=== PATIENT | male | born 1990 | race Caucasian/White ===

== ENCOUNTER 2018-05-22 06:59 | Emergency (ER) | payer SELFPAY ==
[~2018-05-22] VITALS: Ht 170.2 cm; Wt 88.5 kg
[2018-05-22 07:02] VITALS: BP 129/79
--- NOTE | 2018-05-22 07:04 | NUR ---
TO BED # 11 AMBULATORY
--- NOTE | 2018-05-22 07:10 | NUR ---
Dr. Shelton evaluating patient at bedside.
[2018-05-22] MEDS ORDERED: MECLIZINE 25 MG TAB PO ONE (07:15)
--- NOTE | 2018-05-22 07:29 | NUR ---
PT LAYING IN BED WITH EYES CLOSED, EASILY AROUSABLE TO VOICE. AWAKE, ALERT, ORIENTED X3. RESP EVEN AND UNLABORED, DENIES ANY ACUTE PAIN AT THIS TIME. REPORTS SYNCOPAL EPISODES X4 TIMES OVER THE LAST 2 DAYS. DENIES ANY LOSS OF CONSCIOUSNESS. DENIES CHANGES IN VISION, ONLY REPORTS MILD INTERMITTENT HEADACHE. NO OBVIOUS TRAUMA NOTED. SKIN W/D/I. DENIES CP, DENIES DURG OR ETOH ABUSE. PT WITH DISHEVELED APPEARANCE, DENIES BEING HOMELESS, JUST SOFA SURFING. NOTED THAT PT WAS HERE AT [facility] LAST NIGHT, ER MD NOTIFIED.
[2018-05-22 07:31] LABS: EOSINOPHILS # (AUTO) 0.2 K/uL (0-0.4); EOSINOPHILS % (AUTO) 4.1 % (0.0-4.0); HEMATOCRIT 41.8 % (36-52); HEMOGLOBIN 13.8 g/dL (12.0-18.0); LYMPHOCYTES # (AUTO) 1.3 K/uL (2.0-11.5); LYMPHOCYTES % (AUTO) 25.7 % (20.5-51.1); MEAN CORPUSCULAR HEMOGLOBIN 30 pg (27-31); MEAN CORPUSCULAR HGB CONC 33 g/dL (33-37); MEAN CORPUSCULAR VOLUME 90.1 fL (80-94); MONOCYTES # (AUTO) 0.3 K/uL (0.8-1.0); MONOCYTES % (AUTO) 5.9 % (1.7-9.3); NEUTROPHILS # (AUTO) 3.2 K/uL (1.8-7.7); NEUTROPHILS % (AUTO) 63.3 % (42.2-75.2); PLATELET COUNT (AUTO) 173 K/uL (140-450); RED BLOOD CELL COUNT(AUTO) 4.64 MIL/uL (4.20-6.10); RED CELL DISTRIBUTION WIDTH 13.2 % (11.6-13.7)
[2018-05-22 07:54] LABS: ALBUMIN 3.3 g/dL (3.4-5.0); ANION GAP 7.6 (8-16); ASPARTATE AMINOTRANSFERASE 14 U/L (15-37); CARBON DIOXIDE 26.9 mmol/L (21-32); CHLORIDE 106 mmol/L (98-107); GFR ARICAN-AMERICAN 115 mL/min (>90); GLUCOSE 136 mg/dL (74-106); POTASSIUM 3.5 mmol/L (3.5-5.1); SODIUM SERUM 137 mmol/L (136-145); TOTAL BILIRUBIN 0.2 mg/dL (0.0-1.0); UREA NITROGEN, BLOOD 8 mg/dL (7-18)
--- NOTE | 2018-05-22 08:05 | NUR ---
[facility] COLLECTED AND SENT
[2018-05-22 08:36] LABS: APPEARANCE,URINE CLEAR (CLEAR); BILIRUBIN,URINE NEGATIVE (NEGATIVE); BLOOD, URINE NEGATIVE (NEGATIVE); COLOR,URINE YELLOW (YELLOW); LEUKOCYTE ESTERASE ,URINE NEGATIVE (NEGATIVE); NITRITE, URINE NEGATIVE (NEGATIVE); UGLUCOSE NEGATIVE (NEGATIVE)
[2018-05-22 08:45] LABS: BARBITURATE, URINE NEG. ng/ml (NEG <=200); BENZODIAZEPINE, URINE NEG. ng/mL (NEG <=200); CANNABINOID, URINE POS. ng/mL (NEG <=50); COCAINE, URINE NEG. ng/mL (NEG <=300); OPIATE, URINE NEG. ng/mL (NEG <=2000); PHENCYCLIDINE SCREEN,URINE NEG. ng/mL (NEG <=25)
[2018-05-22 09:04] VITALS: BP 116/58
--- NOTE | 2018-05-22 09:04 | NUR ---
Patient discharged with v/s stable. Written and verbal after care instructions given and explained. Patient verbalized understanding. Ambulatory with steady gait. All questions addressed prior to discharge. Advised to follow up with PMD.
== END 2018-05-22 09:04 | disposition home or self-care (01) ==
LOC: MED 06:59
DX: F19.10 Other psychoactive substance abuse, uncomplicated (principal); R55 Syncope and collapse
CPT/HCPCS: 36415; 71045; 80053; 80305; 81003; 82550; 85025; 93005; 99285; G0482; J8597; Q0092

== ENCOUNTER 2018-11-21 23:52 | Emergency (ER) | payer SELFPAY ==
[~2018-11-21] VITALS: Ht 170.2 cm; Wt 99.8 kg
[2018-11-22 00:30] VITALS: BP 110/60
[2018-11-22 00:33] VITALS: BP 110/60
== END 2018-11-22 00:52 | disposition left against medical advice (07) ==
LOC: MED 23:52
DX: J02.9 Acute pharyngitis, unspecified (principal); Z53.21 Procedure and treatment not carried out due to patient leaving prior to being seen by health care provider

== ENCOUNTER 2019-08-04 23:30 | Emergency (ER) | payer SELFPAY ==
[~2019-08-04] VITALS: Ht 170.2 cm; Wt 82.1 kg
[2019-08-04 23:55] VITALS: BP 127/73
[2019-08-05] MEDS ORDERED: IBUPROFEN 600 MG TAB PO ONE (01:10)
[2019-08-05 02:00] VITALS: BP 127/73
== END 2019-08-05 02:00 | disposition home or self-care (01) ==
LOC: MED 23:30
DX: S46.002A Unspecified injury of muscle(s) and tendon(s) of the rotator cuff of left shoulder, initial encounter (principal); X58.XXXA Exposure to other specified factors, initial encounter; Y93.39 Activity, other involving climbing, rappelling and jumping off; Y92.89 Other specified places as the place of occurrence of the external cause; Y99.8 Other external cause status
CPT/HCPCS: 73030; 99283; Q0092

== ENCOUNTER 2019-08-08 18:22 | Emergency (ER) | payer SELFPAY ==
[~2019-08-08] VITALS: Ht 170.2 cm; Wt 82.1 kg
--- NOTE | 2019-08-08 18:24 | NUR ---
PT BIBA FOR GEN WEAKNESS. PER EMS PT WAS FOUND BY [place] [employer] SLEEPING IN PARKING LOT. PT ON ARRIVAL IS DROWSY BUT ANSWERES APPROPRIATELY. PT STATES HE SMOKED A "WAX CIGARETTE" . PT STATES HE IS NOT HOMELESS AND HE IS VISITING FROM DA FRIENDS IN [place]. VSS, PUPILS PERRL. DR JOHNSTON ASSESSING PT.
--- NOTE | 2019-08-08 18:24 | NUR ---
PT BIBA BLS TO ER BED 04
[2019-08-08 18:29] VITALS: BP 116/73
[2019-08-08 18:35] VITALS: BP 116/73
== END 2019-08-08 18:35 | disposition home or self-care (01) ==
LOC: MED 18:22
DX: F12.129 Cannabis abuse with intoxication, unspecified (principal)
CPT/HCPCS: 99282

== ENCOUNTER 2019-08-17 21:51 | Emergency (ER) | payer SELFPAY ==
[~2019-08-17] VITALS: Ht 170.2 cm; Wt 88.9 kg
[2019-08-17 22:04] VITALS: BP 123/80
[2019-08-17 22:43] VITALS: BP 113/69
--- NOTE | 2019-08-17 22:45 | NUR ---
PT TRIAGED, SENT BACK TO LOBBY AWAITING FOR BED
--- NOTE | 2019-08-17 23:20 | NUR ---
PT TAKEN TO BED 2
--- NOTE | 2019-08-17 23:31 | NUR ---
DR. GREER EVALUATING AT BEDSIDE.
--- NOTE | 2019-08-17 23:36 | NUR ---
28/M PRESENTS TO ED, C/O L SHOULDER PAIN, X2 MONTHS. PT REQUESTING FOR PAINKILLERS. L SHOULDER WITH NO DEFORMITY, SWELLING, BRUISING, +CMS. PT AWAKE AND ALERT, SKIN NORMAL COLOR WARM AND DRY, RR EVEN AND UNLABORED. DENIES MED HX OR RX.
[2019-08-17] MEDS ORDERED: KETOROLAC 30 MG/ML VIAL IM ONE (23:40)
[2019-08-18 00:06] VITALS: BP 156/65
--- NOTE | 2019-08-18 00:07 | NUR ---
dPatient discharged with v/s stable. Written and verbal after care instructions given and explained. Patient alert, oriented and verbalized understanding of instructions. Ambulatory with steady gait. All questions addressed prior to discharge. ID band removed. Patient advised to follow up with PMD. Rx of ibuprofen, flonase given. Patient educated on indication of medication including possible reaction and side effects. Opportunity to ask questions provided and answered.
== END 2019-08-18 00:07 | disposition home or self-care (01) ==
LOC: MERGE 21:51 → MED 21:51
DX: M25.512 Pain in left shoulder (principal)
CPT/HCPCS: 96372; 99283; J1885